=== PATIENT | male | born 1960 | race Caucasian/White ===

== ENCOUNTER 2016-09-07 11:45 | Emergency (ER) | payer OTHER ==
[~2016-09-07] VITALS: Ht 172.7 cm; Wt 68.0 kg
[~2016-09-07 11:45] MED LIST: ABILIFY 5MG5 MG PO; ALPRAZOLAM0.5 MG PO; ATIVAN0.5 MG PO; BACLOFEN10 M1 PO; BENADRYL ALLERG25 M2 PO; CEPHALEXIN500 MG PO; IBUPROFEN600 M1 PO; IBUPROFEN800 M1 PO; NYSTATIN AND TR1 OIN TOP; PERCOCET 5-3251 EACH PO; PREDNISONE20 M1 PO; TRAZODONE50 MG PO; ULTRAM50 M1 PO; VIIBRYD40 MG PO
--- NOTE | 2016-09-07 11:56 | ED GENERAL ADULT ---
History of Present Illness General Chief Complaint: ETOH/Drug Related Complaint Stated Complaint: ?OD Source: patient, family, old records, EMS Exam Limitations: poor historian Vital Signs & Intake/Output Vital Signs & Intake/Output Vital Signs Date Time Temp Pulse Resp B/P Pulse O2 O2 Flow FiO2 Ox Delivery Rate 09/07 1337 97.0 74 18 130/77 98 Room Air 09/07 1237 98 Room Air 09/07 1147 96.0 75 18 138/85 98 Room Air Allergies Coded Allergies: Sulfa (Sulfonamide Antibiotics) (ANAPHYLACTIC 11/01/15) Reconcile Medications Vilazodone (Viibryd) 40 MG TABLET 1 TAB PO DAILY MENTAL HEALTH (Reported) Triage Nurses Notes Reviewed? yes HPI: Patient is a 56-year-old male brought in by ambulance for evaluation of change in mental status and overdose. Patient reports that he took 50 mg of Ambien at approximately 8:30 or 9 AM this morning. Patient's reports that he appeared to be severely confused and hallucinating since he took the medication which prompted her to call 911. Patient reports that he has been having difficulty sleeping for a couple of years, worse over the past couple of weeks. Patient initially took 10 mg of Ambien without effect so he took an additional 40 mg. This was confirmed by patient's counting the pills remaining in the bottle of Ambien. Patient has been severely depressed due to financial stressors and his inability to sleep. Patient also hearing rats at home, unclear whether rats are present this is a hallucination. Patient has been going to the [facility] frequently and using cocaine. Patient was previously on 40 mg of Vibryd, he stopped going to his doctor so he now takes his 's medication, taking 20 mg daily for the past 2 years. Patient denies suicidal ideation. Past History Travel History Traveled to [place] past 21 day No Medical History Any Pertinent Medical History? see below for history Musculoskeletal: disk herniation Psychiatric: depression, insomnia Surgical History Surgical History: non-contributory Psychosocial History Who do you live with Family What is your primary language Amharic Tobacco Use: Current Daily Use Daily Tobacco Use Amount/Type: => 5 Cigarettes daily ETOH Use: denies use Illicit Drug Use: cocaine, occasional opiates Family History Hx Contributory? No Review of Systems Review of Systems Constitutional: Denies: chills, fever. EENTM: Reports: no symptoms. Respiratory: Denies: cough, short of breath. Cardiovascular: Denies: chest pain. GI: Denies: abdominal pain, nausea, vomiting. Genitourinary: Reports: no symptoms. Musculoskeletal: Denies: back pain, neck pain. Skin: Reports: no symptoms. Neurological/Psychological: Reports: see HPI. Hematologic/Endocrine: Denies: bruising, bleeding. Immunologic/Allergic: Denies: splenectomy. Physical Exam Physical Exam General Appearance: alert, awake Head: multiple 0.5-1 cm superficial wounds to the superior scalp. No erythema or induration Eyes: Bilateral: normal appearance, PERRL, EOMI. Ears, Nose, Throat: hearing grossly normal Neck: normal inspection, supple, full range of motion Respiratory: normal breath sounds, chest non-tender, no respiratory distress, lungs clear Cardiovascular: regular rate/rhythm Gastrointestinal: soft, non-tender Back: normal inspection, normal range of motion Extremities: normal inspection, normal capillary refill, normal range of motion, no edema Neurologic/Psych: awake, alert, depressed affect, pressured speech. No suicidal ideation. Skin: warm/dry Lymphatic: no anterior cervical kyle Core Measures ACS in differential dx? No CVA/TIA Diagnosis: No Severe Sepsis Present: No Septic Shock Present: No Progress Differential Diagnoses I considered the following diagnoses in my evaluation of the patient: overdose( unintentional vs intentional), withdrawal, suicide attempt, mood disorder, personality disorder, psychosis Plan of Care: Orders Procedure Date/time Status ED CRISIS PSYCH CONSULT 09/07 1213 Active URINE DRUG SCREEN FOR ER ONLY 09/07 1153 Complete ACETOMINOPHEN 09/07 1153 Complete SALICYLATE 09/07 1153 Complete ETHANOL 09/07 1153 Complete COMPREHENSIVE METABOLIC PANEL 09/07 1153 Complete CBC WITHOUT DIFFERENTIAL 09/07 1153 Complete EKG 09/07 1153 Active Laboratory Tests 09/07/16 1221: Urine Opiates Screen < 100.00, Methadone Screen < 40, Barbiturate Screen 63, Ur Phencyclidine Scrn < 6.00, Amphetamines Screen < 100, U Benzodiazepines Scrn < 85, Urine Cocaine Screen > 1000 H, Urine Cannabis Screen > 80.00 H 09/07/16 1221: Anion Gap 10, Estimated GFR > 60, BUN/Creatinine Ratio 17.8, Glucose 93, Calcium 10.0, Total Bilirubin 0.9, AST 28, ALT 43, Alkaline Phosphatase 66, Total Protein 7.1, Albumin 4.5, Globulin 2.6, Albumin/Globulin Ratio 1.7, CBC w Diff NO MAN DIFF REQ, RBC 4.96, MCV 88.9, MCH 29.3, RDW 14.0, MPV 7.0 L, Gran % 67.1 , Lymphocytes % 19.4 L, Monocytes % 10.0 H, Eosinophils % 3.1, Basophils % 0.4 , Absolute Granulocytes 4.4, Absolute Lymphocytes 1.3, Absolute Monocytes 0.6, Absolute Eosinophils 0.2, Absolute Basophils 0, PUBS MCHC 33.0, Salicylates < 1.0, Acetaminophen < 10.0 L, Serum Alcohol < 10.0 1330: No SI or HI. No apparent hallucinations. Patient does not want to stay for crisis evaluation. Discussed medication safety and his cocaine use. (SUNG LUNA,MELANIA) Initial ED EKG: normal axis, normal intervals, normal p-waves, normal QRS complex, normal sinus rhythm, no ST T wave changes Departure Departure Time of Disposition: 1329 Disposition: HOME OR SELF CARE Condition: Stable Clinical Impression Primary Impression: Accidental medication overdose Qualifiers: Encounter type: initial encounter Qualified Code: T50.901A - Poisoning by unspecified drugs, medicaments and biological substances, accidental (unintentional), initial encounter Secondary Impressions: Cocaine abuse, episodic Referrals: PATIENT HAS NO PRIMARY CARE DR (PCP/Family) Additional Instructions: Provided is a list of counseling resources and the information for a primary care doctor. Take any prescription medications as directed. Taking additional doses puts you at risk for respiratory arrest and your heart stopping. Return to the ER if thoughts of harming yourself, if you would like to be evaluated by the cutting machine operator in the emergency department or worsening of symptoms. Departure Forms: Customer Survey General Discharge Information Critical Care Note Critical Care Note Critical Care Time: non-applicable
[2016-09-07 12:31] LABS: ABSOLUTE BASOPHIL COUNT 0 /CUMM (0.0-0.2); ABSOLUTE EOSINOPHIL COUNT 0.2 /CUMM (0.0-0.7); ABSOLUTE GRANULOCYTE CT 4.4 /CUMM (1.4-6.5); ABSOLUTE LYMPH COUNT 1.3 /CUMM (1.2-3.4); ABSOLUTE MONOCYTE COUNT 0.6 /CUMM (0.10-0.60); BASOPHIL % 0.4 % (0.0-2.0); EOSINOPHIL % 3.1 % (0-5); GRANULOCYTE % 67.1 % (42.2-75.2); HEMATOCRIT 44.1 % (42-52); MEAN CORPUSCULAR HGB 29.3 PG (27.0-31.0); MEAN CORPUSCULAR VOLUME 88.9 FL (80.0-94.0); PLATELET COUNT 226 /CUMM (130-400); RED BLOOD CELL CT 4.96 /CUMM (4.70-6.10); WHITE BLOOD CELL COUNT 6.5 /CUMM (4.8-10.8)
[2016-09-07 13:37] VITALS: BP 130/77
[2016-09-07] MEDS ORDERED: VIIBRYD40 M1 PO (18:23)
== END 2016-09-07 13:38 ==
LOC: ERH 11:45
PROVIDERS: Physician Assistant
DX: T45.0X1A Poisoning by antiallergic and antiemetic drugs, accidental (unintentional), initial encounter (principal); F14.10 Cocaine abuse, uncomplicated; F32.9 Major depressive disorder, single episode, unspecified
CPT/HCPCS: 80307; 93005; 93010; G0463; G0480

== ENCOUNTER 2016-09-07 16:13 | Emergency (ER) | payer OTHER ==
[~2016-09-07] VITALS: Ht 165.1 cm; Wt 68.0 kg
--- NOTE | 2016-09-07 17:50 | ED PSYCHIATRIC COMPLAINT ---
History of Present Illness General Chief Complaint: Psychiatric Related Complaint Stated Complaint: BIBA FOR ?PSYCH EVAL Source: patient Exam Limitations: no limitations Allergies Coded Allergies: Sulfa (Sulfonamide Antibiotics) (ANAPHYLACTIC 11/01/15) Reconcile Medications Vilazodone (Viibryd) 40 MG TABLET 1 TAB PO DAILY MENTAL HEALTH (Reported) Triage Note: PT BIBEstevan FROM HOME S/P VERBAL ARGUMENT WITH HIS . HE WAS EVALUATED HERE THIS AM FOR OVER TAKING HIS ATIVAN AND EVENTUALLY RELEASED. HIS WAS SUPPOSED TO PICL HIM UP FROM THE ED HOWEVER SHE DID NOT FOR HE WAS ANGRY AND UPON ARRIVING TO HIS HOUSE HE BAGAN ARGUING WITH HER. HE WAS NOT PHYSICALLY AGRESSIVE TOWARDS HIS ALTHOGH HE ADMITTS TO BRAKING SEVERAL ITEMS IN THE HOUSE. Triage Nurses Notes Reviewed? yes HPI: This patient is a 56-year-old male who presented to the emergency department today brought in by ambulance for evaluation after getting into an argument with his . This patient was seen here this morning. The patient reported that this morning his thought that he took 10 Ambien and he reported that he only took 4. He reported that he was evaluated here and then released. He reported that when he went home he'll let his kids and then before he knew that he was back here in the emergency department. The patient reported, "I don't know why I'm here. I am embarrassed." He denied any chest pain, debility breathing, abdominal pain, nausea, vomiting, fevers, or chills. (JOIE GARCIA,DILLAN) Vital Signs & Intake/Output Vital Signs & Intake/Output Vital Signs Date Time Temp Pulse Resp B/P Pulse O2 O2 Flow FiO2 Ox Delivery Rate 09/08 0802 97.1 75 18 115/77 96 Room Air 09/08 0609 96.2 64 18 121/79 97 Room Air 09/07 2002 97.1 82 18 138/84 97 Room Air ED Intake and Output 09/08 0000 09/07 1200 Intake Total 0 Output Total Balance 0 Intake, Oral 0 Patient 150 lb Weight Past History Travel History Traveled to [place] past 21 day No Medical History Any Pertinent Medical History? see below for history Musculoskeletal: disk herniation Psychiatric: depression, insomnia Surgical History Surgical History: non-contributory Psychosocial History Who do you live with Family What is your primary language Niuean Tobacco Use: Current Daily Use Daily Tobacco Use Amount/Type: => 5 Cigarettes daily Family History Hx Contributory? No (DILLAN SALTER PA-C) Review of Systems Review of Systems Constitutional: Reports: no symptoms. EENTM: Reports: no symptoms. Respiratory: Reports: no symptoms. Cardiovascular: Reports: no symptoms. GI: Reports: no symptoms. Musculoskeletal: Reports: no symptoms. Skin: Reports: no symptoms. Neurological/Psychological: Reports: see HPI. All Other Systems: Reviewed and Negative (DILLAN SALTER PA-C) Physical Exam Physical Exam General Appearance: well developed/nourished, no apparent distress, alert, awake Neurological/Psychiatric: no motor/sensory deficits, awake, alert, calm, industrial automation specialist II- XII nml as tested, depressed affect, oriented x 3 Comments: Well-developed well-nourished person in no acute distress HEENT: Normal EENT exam, head normocephalic, moist mucous membranes Pupils equally round and reactive to light. Back: Normal gait Respiratory: No respiratory distress. Speaking full sentences Extremity: Normal and equal pulses Neuro: Alert oriented x3, motor sensory normal, cranial nerves II through XII grossly intact. Skin: No appreciable rash on exposed skin, skin is warm and dry. Psych: Mood and affect is depressed SAD PERSONS Done? patient not suicidal (DILLAN SALTER PA-C) Progress Differential Diagnosis: dementia, drug intoxication, drug overdose, drug withdrawal, electrolyte abnormality, encephalitis Hand-Off Endorsed To: VANESA CASTRO MD Endorsed Time: 99 Pending: consult Comments: Discussed this patient with crisis. They reported that as long as the patient had a new urine toxicology screen and is breathalyzed, they're fine with bypassing the CBC, CMP, and serum alcohol level. THIS PATIENT WILL BE RE-EVALUATED BY CRISIS IN THE MORNING. (DILLAN SALTER PA-C) Plan of Care: Orders Procedure Date/time Status Regular Diet 09/08 B Active Continuous Observation Monitor 09/08 1900 Active Continuous Observation Monitor 09/08 1500 Active Continuous Observation Monitor 09/08 1100 Active Continuous Observation Monitor 09/08 0700 Active ED CRISIS PSYCH CONSULT 09/07 1826 Active Hand-Off Endorsed To: SELAM XIONG MD Endorsed Time: 07 Pending: consult (RE-EVAL) (VANESA CASTRO MD) Comments: Cleared by psychiatry for discharge. (SELAM XIONG MD) Departure Departure Disposition: HOME OR SELF CARE Condition: Stable Referrals: PATIENT HAS NO PRIMARY CARE DR (PCP/Family) (JOIE GARCIA,DILLAN) Departure Clinical Impression Primary Impression: Depression (GLORIA ALCANTAR,VANESA Carney) Departure Time of Disposition: 829 Departure Forms: General Discharge Information PA/AUTOMOBILE INSURANCE CLAIM EXAMINER Co-Sign Statement Statement: ED Attending supervision documentation- x I saw and evaluated the patient. I have also reviewed all the pertinent lab results and diagnostic results. I agree with the findings and the plan of care as documented in the PA's/AUTOMOBILE INSURANCE CLAIM EXAMINER's documentation. [] I have reviewed the ED Record and agree with the PA's/AUTOMOBILE INSURANCE CLAIM EXAMINER's documentation. [] Additions or exceptions (if any) to the PAs/AUTOMOBILE INSURANCE CLAIM EXAMINER's note and plan are summarized below: [] (SELAM XIONG MD) Departure Forms: General Discharge Information PA/AUTOMOBILE INSURANCE CLAIM EXAMINER Co-Sign Statement Statement: ED Attending supervision documentation- x I saw and evaluated the patient. I have also reviewed all the pertinent lab results and diagnostic results. I agree with the findings and the plan of care as documented in the PA's/AUTOMOBILE INSURANCE CLAIM EXAMINER's documentation. [] I have reviewed the ED Record and agree with the PA's/AUTOMOBILE INSURANCE CLAIM EXAMINER's documentation. [] Additions or exceptions (if any) to the PAs/AUTOMOBILE INSURANCE CLAIM EXAMINER's note and plan are summarized below: [] (SELAM XIONG MD)
[2016-09-07] MEDS ORDERED: VIIBRYD40 M1 PO (18:23)
--- NOTE | 2016-09-07 19:23 | ED PSYCH CRISIS CONSULTATION ---
Crisis Consult Basic Assessment Date of Consult: 09/07/16 Responsible Person/Accompanied By: self/BIBA on [place] [employer] PEER Insurance Authorization: Insurance #1: Insurance name: ELLIOTT Corado[employer] Phone number: Policy number: [id number] Group number: Authorization number: ED Provider: Patient's ED Provider: DILLAN SALTER PA-C Primary Care Physician: Patient's PCP: PATIENT HAS NO PRIMARY CARE DR PCP's Phone Number: Current Psychiatrist: Yohan Rodrigues MD Chief Complaint: Psychiatric Related Complaint Patient's Quote: I'm having a bad day Present Illness: Pt is a 56 yo male biba ambulance to [facility] this afternoon on an [place] [employer] PEER. Police were called out to the home by a neighbor due to Pt causing a disturbance in the home yelling and breaking things. Pt had been evaluated earlier today at [facility] due to 's concerns that pt took too many ambien pills. thought he took ten pt reports four. Upon initial discharge pt reportedly had to walk home and entered the home agitated and was yelling at his sons (age 18 and 14). Pt reports no treatment hx. He reports 23 yo daughter 8 yrs ago in a motor vehicle accident and since then he has been inconsistently taking an anti-depressant medication. Pt reports he has been up late last two nights dealing with a mouse issue in the house and hasn't been able to sleep for the reason he took the ambian. Pt reports he typically doesn't take ambian. Pt denies alcohol use. He reports occasional cocaine use and states he used cocaine a couple of days ago. Pt also denies recent cannabis use and contributes positive screen due to being around a lot of people who smoke marijuana. Pt denies si/hi. Pt reports "its been a bizarre day". Pt reports loving his and kids and is sad that he has but them through this turmoil today. Pt presents as tearful and tired. He expressed possible interest in outpatient therapy and being evaluated by a psychiatrist to determine if he would benefit from a change in medication. Patient's Address: [address] [place] [address] Other Who Do You Live With? Family Family/Informants Interviewed: Collateral provided by pt Sravani. she reports pt has no hx of mental health concerns. She reports he seems more stressed recently. Family having difficult financial issues and pt not working consistently. She reports pt is not a risk to self or others but she feels he needs to get a good night sleep and reevaluated in the morning. She reports hope that he will be interested in outpatient tx. Allergies - Coded Allergies: Sulfa (Sulfonamide Antibiotics) (ANAPHYLACTIC 11/01/15) Current Medications - Scheduled Medications Vilazodone (Viibryd) 40 MG TABLET 1 TAB PO DAILY MENTAL HEALTH (Reported) Entered as Reported by ZEHRA PEREIRA on 09/07/16 1823 Laboratory Results: Laboratory Tests 09/07/16 1711: CBC w Diff Cancelled, WBC Cancelled, RBC Cancelled, Hgb Cancelled, Hct Cancelled , MCV Cancelled, MCH Cancelled, RDW Cancelled, Plt Count Cancelled, MPV Cancelled, PUBS MCHC Cancelled, Serum Alcohol Cancelled 09/07/16 1624: Urine Opiates Screen < 100.00, Methadone Screen < 40, Barbiturate Screen 61, Ur Phencyclidine Scrn < 6.00, Amphetamines Screen < 100, U Benzodiazepines Scrn < 85, Urine Cocaine Screen > 1000 H, Urine Cannabis Screen > 80.00 H (MARINA BURGESS LCSW) Past History Past Medical History Musculoskeletal: disk herniation Psychiatric: depression, insomnia Past Surgical History Surgical History: non-contributory Psychosocial History Strengths/Capabilities: cares about family Physical Limitations (Interventions): none known Psychiatric Treatment History Psych Treatment Psychiatric Treatment No Inpatient Treatment No Outpatient Treatment No Diagnosis by History: Depression Substance Use/Abuse History Drug Use/Abuse 1 Substances Used/Abused Yes Substance Used/Abused Cocaine Last Used this weekend Drug Use/Abuse 2 Substances Used/Abused Yes Substance Used/Abused Marijuana Substance Abuse Treatment Substance Abuse Treatment Past Substance Abuse [place] No Inpatient Treatment No Outpatient Treatment No Comments: minimizes amout of cocaine and cannabis use. (MARINA BURGESS LCSW) Current Mental Status Mental Status Orientation: Person, Place, Situation Affect: Depressed, Sad Speech: WNL Neuro-vegetative: Concentration Poor, Sleep Disturbance Appearance Appearance- Dress/Hygiene: hospital scrubs; tearful; sitting up on end of bed wrapped in blanket; unshaven. 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 Pt also denies depression but reports taking antidepresant Viibrand 40 mg past 8yrs following of his 23 yo daughter from motor vehicle accident. Pt does report potential interest in outpatient therapy and evaluation by psychiatrist. (MARINA BURGESS LCSW) Departure Disposition Psych Medical Clearance Date: 09/07/16 Medically Cleared at: 1930 Time Started: 1934 Time Ended: 2014 Psychiatrist Consulted: Yohan Rodrigues MD Date Disposition Established: 09/07/16 Time Disposition Established: 2019 Plan for Disposition - Modality: H/O re-eval in morning Facility: [facility] Rationale for Disposition: Pt difficulty sleeping last few nights. Urine tox screen positive for Cocaine and cannabis. Episode of aggression/agitation this afternoon. pt tearful. Denies /SI/HI. Plan to h/o night and re-assess tomorrow by crisis when less cocaine and cannabis in pt system. Referrals PATIENT HAS NO PRIMARY CARE DR (PCP/Family) (MARINA BURGESS LCSW) Disposition Psych Medical Clearance Date: 09/08/16 Medically Cleared at: 0745 Time Started: 744 Time Ended: 819 Psychiatrist Consulted: Wiley Hammond MD Date Disposition Established: 09/08/16 Time Disposition Established: 819 Plan for Disposition - Modality: Pt refusing follow-up Facility: pt refusing Rationale for Disposition: Pt denies SI/HI/SH/Psychosis and declines any tx (WADE BOONE LCSW) Addendum Addendum Crisis re-evaluated pt this morning and he presents as calm and co-operative. He continues to deny SI/HI/SH/psychosis. Pt expresses that he slept well and would like to go home. He was offered inpt psych tx, IOP, and IOP multiple times and he continues to refuse. Pt's came in and crisis met with pt and together and separately. informed that she locked-up all the medications ion the home yesterday after his prior ED for over use of his ambien. she denies having any safety concerns, but did encourage pt to go to out pt tx, but he continues to refuses stating that he plans for he and his family to move soon. Pt and his interacted calmly and appropriately. was hugging and comforting pt and asking to take him home. Case reviewed with Dr. Hammond of Psychiatry who approved discharge. (PAOLO SHETTY,WADE)
[2016-09-08 08:02] VITALS: BP 115/77
== END 2016-09-08 08:44 ==
LOC: ERH 16:13
DX: F32.9 Major depressive disorder, single episode, unspecified (principal)
CPT/HCPCS: 80307; G0463; G0480

== ENCOUNTER 2016-10-10 09:52 | Emergency (ER) | payer OTHER ==
[~2016-10-10] VITALS: Ht 170.2 cm; Wt 68.0 kg
[~2016-10-10 09:52] MED LIST changes: +VIIBRYD40 M1 PO
[2016-10-10 10:03] VITALS: BP 14/84
--- NOTE | 2016-10-10 10:31 | ED INFLUENZA/URI COMPLAINT ---
History of Present Illness General Chief Complaint: Sore Throat, Dental Pain Stated Complaint: SORE THROAT Source: patient Exam Limitations: no limitations Vital Signs & Intake/Output Vital Signs & Intake/Output Vital Signs Date Time Temp Pulse Resp B/P B/P Pulse O2 O2 Flow FiO2 Mean Ox Delivery Rate 10/10 1003 97.4 74 16 92 Allergies Coded Allergies: Sulfa (Sulfonamide Antibiotics) (ANAPHYLACTIC 11/01/15) Reconcile Medications Albuterol Sulfate (Proventil Hfa) 90 MCG HFA.AER.AD 2 PUF INH Q4 SOB Amoxicillin 875 MG TABLET 1 TAB PO BID bronchitis/sore throat Prednisone (Deltasone) 20 MG TABLET 1 TAB PO TID SORE THROAT Vilazodone (Viibryd) 40 MG TABLET 1 TAB PO DAILY MENTAL HEALTH (Reported) Triage Note: PT IS HAVING SORE THROAT FOR THE PAST 2 DAYS. PT STATES HIS EPIGLOTIS IS HANGING DOWN INTO HIS THROAT. Triage Nurses Notes Reviewed? yes Onset: Abrupt Duration: day(s): (3), constant, continues in ED Timing: recent history Severity: moderate, severe No Modifying Factors: none HPI: 56-year-old male comes into emergency room with complaints of sore throat. Symptoms may going on for the past 3 days. Patient reports that the thing that hangs in the back of his mouth is swollen and touching his tongue. Patient reports that he has been coughing for a couple months. He is a every day smoker. Some mucus production. Denies any vomiting chest pain or shortness of breath. Nothing seems to make the symptoms better or worse. Denies any other associated symptoms. (MARSHALL PHILIP) Past History Travel History Traveled to [place] past 21 day No Medical History Any Pertinent Medical History? none Musculoskeletal: disk herniation Psychiatric: depression, insomnia Surgical History Surgical History: non-contributory Psychosocial History Who do you live with Family What is your primary language Turkmen Tobacco Use: Current Daily Use Daily Tobacco Use Amount/Type: => 5 Cigarettes daily ETOH Use: denies use Illicit Drug Use: cocaine Family History Hx Contributory? No (MARSHALL PHILIP) Review of Systems Review of Systems Constitutional: Reports: see HPI. EENTM: Reports: see HPI. Respiratory: Reports: see HPI. Cardiovascular: Reports: no symptoms. GI: Reports: no symptoms. Genitourinary: Reports: no symptoms. Musculoskeletal: Reports: no symptoms. Skin: Reports: no symptoms. Neurological/Psychological: Reports: no symptoms. Hematologic/Endocrine: Reports: no symptoms. Immunologic/Allergic: Reports: no symptoms. All Other Systems: Reviewed and Negative (MARSHALL PHILIP) Physical Exam Physical Exam General Appearance: well developed/nourished, alert, awake Head: atraumatic, normal appearance Eyes: Bilateral: normal appearance, EOMI. Ears, Nose, Throat: moist mucous membrane, hearing grossly normal, posterior pharynx erythematous, uvula swollen, no exudates, Neck: normal inspection, full range of motion Respiratory: no respiratory distress, rhonchi, wheezing Cardiovascular: regular rate/rhythm Gastrointestinal: soft, non-tender Back: normal inspection Extremities: normal inspection, normal range of motion, no edema Neurologic/Psych: awake, alert, oriented x 3, normal gait, normal mood/affect Skin: intact, normal color Core Measures Severe Sepsis Present: No Septic Shock Present: No (MARSHALL PHILIP) Progress Differential Diagnosis: influenza, meningitis, neutropenia, otitis, pneumonia, pharyngitis, sinusitis, bronchitis,, uveitis, strep throat, Plan of Care: Orders Procedure Date/time Status THROAT CULTURE W/QUICK STREP 10/10 1030 Active Diagnostic Imaging: Viewed by Me: Radiology Read. Discussed w/RAD: Radiology Read. Radiology Impression: SERVICE DATE: 10/10/16 EXAM TYPE: RAD - XRY-CHEST XRAY, PA AND LATERAL EXAMINATION: XR CHEST CLINICAL INFORMATION: Wheezing. COMPARISON: Chest radiographs 09/15/2012, 12/22/2011. TECHNIQUE: PA and lateral views of the chest are obtained. FINDINGS: The lungs are clear. The vascularity is normal. There is no coarsening of the bronchiolar markings or overt hyperinflation from prior studies. There is no airspace consolidation or effusion. The costophrenic sulci are clear. The cardiac and hilar and mediastinal contours and bony structures are stable. IMPRESSION: Lungs clear. No acute intrathoracic disease. DICTATED BY: SAMANTHA HAMMOND MD DATE/TIME DICTATED :10/10/161111 WEED THINNER:TAWNYA DATE/TIME TRANSCRIBED:10/10/161111 Initial ED EKG: none (MARSHALL PHILIP) Departure Departure Disposition: HOME OR SELF CARE Condition: Stable Clinical Impression Primary Impression: Pharyngitis Referrals: FELICIANO ALCANTAR,FABIOLA López (PCP/Family) Additional Instructions: Take prednisone and amoxicillin as prescribed. Use albuterol pump at home. Follow-up with primary care doctor. Return if any other concerns worsening symptoms. Please go over all results of today's visit with your primary care doctor. Contact your primary care doctor to let them know you were here in the emergency room. There may be nonspecific findings which may not be related to your visit today here in the emergency room but may require further evaluation and chronic monitoring by your primary care doctor. If you had a laceration today the chance of foreign body always remains. You should follow-up with your primary care doctor for recheck in 3-5 days for a wound check. If you had an x-ray done there is a chance that a fracture could have been missed on initial read and you should follow-up with your primary care doctor for repeat x-rays if symptoms persist. If your blood pressure was elevated here in the emergency room please have rechecked by her primary care doctor within the next 48 hours by your primary care doctor. If you were prescribed a narcotic here in the emergency room or any type of controlled substances you're not allowed to drive while taking this medication or operate any type of heavy machinery. Narcotics can make you feel lightheaded dizziness nausea and can cause constipation. You may need to bulk picker a stool softener. Thank you for choosing [facility] emergency room. Please return to the emergency room immediately if you have any other concerns worsening of symptoms. Departure Forms: Customer Survey General Discharge Information Prescriptions: Current Visit Scripts Amoxicillin 1 TAB PO BID #20 TAB Prednisone (Deltasone) 1 TAB PO TID #12 MG Albuterol Sulfate (Proventil Hfa) 2 PUF INH Q4 #1 INHAL Comments 10/10/2016 12:04:57 PM Nontoxic-appearing. In no apparent distress. Resting comfortably on stretcher. Symptoms most consistent with viral illness. Return if any other concerns worsening symptoms. Understands and agrees with plan of care. (MARSHALL PHILIP) PA/CLINICAL NURSING MANAGER Co-Sign Statement Statement: ED Attending supervision documentation- [] I saw and evaluated the patient. I have also reviewed all the pertinent lab results and diagnostic results. I agree with the findings and the plan of care as documented in the PA's/CLINICAL NURSING MANAGER's documentation. [X] I have reviewed the ED Record and agree with the PA's/CLINICAL NURSING MANAGER's documentation. [] Additions or exceptions (if any) to the PAs/CLINICAL NURSING MANAGER's note and plan are summarized below: [] (GLORIA ALCANTAR,VANESA Carney)
--- NOTE | 2016-10-10 11:20 | RADIOLOGY REPORT ---
EXAMINATION: XR CHEST CLINICAL INFORMATION: Wheezing. COMPARISON: Chest radiographs 09/15/2012, 12/22/2011. TECHNIQUE: PA and lateral views of the chest are obtained. FINDINGS: The lungs are clear. The vascularity is normal. There is no coarsening of the bronchiolar markings or overt hyperinflation from prior studies. There is no airspace consolidation or effusion. The costophrenic sulci are clear. The cardiac and hilar and mediastinal contours and bony structures are stable. IMPRESSION: Lungs clear. No acute intrathoracic disease.
[2016-10-10] MEDS ORDERED: PROVENTIL HFA6.7 GM INH (11:33)
[2016-10-10] MEDS ORDERED: DELTASONE20 MG PO (11:33)
[2016-10-10] MEDS ORDERED: AMOXICILLIN875 M1 PO (11:33)
== END 2016-10-10 11:40 ==
LOC: ERH 09:52
DX: J02.9 Acute pharyngitis, unspecified (principal); F17.210 Nicotine dependence, cigarettes, uncomplicated
CPT/HCPCS: 1263

== ENCOUNTER 2017-07-26 08:37 | Emergency (ER) | payer OTHER ==
[~2017-07-26] VITALS: Ht 167.6 cm; Wt 65.8 kg
[~2017-07-26 08:37] MED LIST changes: +AMOXICILLIN875 M1 PO; +DELTASONE20 MG PO; +PROVENTIL HFA6.7 GM INH; +TESSALON PERLE100 M1 PO
--- NOTE | 2017-07-26 10:41 | ED GENERAL ADULT ---
History of Present Illness General Chief Complaint: General Adult Stated Complaint: COUGHING LEADS TO RIGHT UNDERARM PAIN Source: patient, family Exam Limitations: no limitations Vital Signs & Intake/Output Vital Signs & Intake/Output Vital Signs Date Time Temp Pulse Resp B/P B/P Pulse O2 O2 Flow FiO2 Mean Ox Delivery Rate 07/26 1220 98.2 76 18 137/78 97 Room Air Room Air 07/26 1049 98 07/26 0849 97.9 74 18 131/83 98 Room Air Allergies Coded Allergies: Sulfa (Sulfonamide Antibiotics) (ANAPHYLACTIC 11/01/15) Triage Note: PT COMPLAINS OF PAIN IN RIGHT AXILARY AREA FOR 2 WEEKS. STATES THAT PAIN IS WORSE WHEN HE MOVES HIS ARM, ALSO STATES THAT HE INJURED R RIBS 2 MONTHS AGO AND HE STILL HAS PAIN IN THAT AREA Triage Nurses Notes Reviewed? yes Onset: Chronic Duration: week(s): Severity: moderate Severity Numbers: 7 Associated Symptoms: cough, Subjective fever HPI: 57 yo M was in his usual state of health when he presented to the ED for a 2 week pain under his right arm. The pain is rated 7/10, produced when he coughs or breathes deeply. It is relieved by Ibuprofen and is reproducible. He states it originated from the upper lobe of the right lung and extends into his right underarm. He endorses subjective fever, and cough. As of note, he presented to the ED April 07, 2017 when he was treated for diffculty breathing and cough. Since then he has had persistent cough, less in intensity, with a clear, jelly like sputum production and has not been well since then according to his . Of note, 2 months ago he also fell on his right side and imaging showed no fractures. He endorses the use of cigarettes and has at least 30 pack year history. 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 (Opare-Colette STUDENT,Jayden) Reconcile Medications Albuterol Sulfate (Proair Hfa) 90 MCG HFA.AER.AD 2 PUF INH Q4-6 PRN PRN bronchospasm Azithromycin (Zithromax) 250 MG TABLET 1 TAB PO DAILY bronchitis Guaifenesin/Dextromethorphan (Robitussin Cough-Chest Dm Liq) 100 MG-5 MG/5 ML LIQUID 5-10 ML PO Q6P PRN cough Prednisone 20 MG TABLET 1 TAB PO BID bronchospasm Vilazodone (Viibryd) 40 MG TABLET 1 TAB PO DAILY MENTAL HEALTH (Reported) (Jac Polk MD) Past History Travel History Traveled to [place] past 21 day No Medical History Any Pertinent Medical History? see below for history Neurological: NONE EENT: NONE Cardiovascular: NONE Respiratory: NONE Gastrointestinal: NONE Hepatic: NONE Renal: NONE Musculoskeletal: disk herniation Psychiatric: depression, insomnia Endocrine: NONE Blood Disorders: NONE Cancer(s): NONE PRINTING SERVICES COORDINATOR/Reproductive: NONE Surgical History Surgical History: non-contributory Psychosocial History Who do you live with Family What is your primary language Bur[place]ian Tobacco Use: Current Daily Use (at least 30 pack year hx) Daily Tobacco Use Amount/Type: => 5 Cigarettes daily ETOH Use: denies use Illicit Drug Use: denies illicit drug use Family History Hx Contributory? Yes (Yasmeen STUDENTJayden) Review of Systems Review of Systems Constitutional: Reports: see HPI, fever. EENTM: Denies: blurred vision. Respiratory: Reports: see HPI, cough, short of breath, sputum production. Cardiovascular: Denies: chest pain. GI: Denies: abdominal pain, nausea, vomiting. Musculoskeletal: Reports: see HPI. Skin: Reports: see HPI, lumps. Neurological/Psychological: Reports: emotional problems. (Yasmeen STUDENTJayden) Review of Systems Genitourinary: Reports: no symptoms. Hematologic/Endocrine: Reports: no symptoms. Immunologic/Allergic: Reports: no symptoms. All Other Systems: Reviewed and Negative (Jac Polk MD) Physical Exam Physical Exam General Appearance: no apparent distress, alert, awake, comfortable Head: Hypopigmentation Eyes: Bilateral: PERRL, EOMI. Ears, Nose, Throat: normal pharynx Neck: supple, No lymphoadenopathy Respiratory: decreased breath sounds, accessory muscle use, Mild work of breathing, barrel chest noted, Cardiovascular: regular rate/rhythm Gastrointestinal: soft, non-tender Extremities: normal inspection Neurologic/Psych: awake, alert, oriented x 3 Core Measures ACS in differential dx? No CVA/TIA Diagnosis: No Sepsis Present: No Sepsis Focused Exam Completed? No (Jayden Ferraro) Physical Exam Peripheral Pulses: 4+ carotid (R), 4+ carotid (L) Back: normal inspection, normal range of motion, no vertebral tenderness Reflexes: 2+: bicep (R), bicep (L). Skin: intact, normal color, warm/dry Lymphatic: no anterior cervical kyle (Jac Polk MD) Progress Differential Diagnoses I considered the following diagnoses in my evaluation of the patient: [COPD exacerbation, pneumonia, costochonrondritis, malignancy, pulmonary embolism] (Jayden Ferraro) Differential Diagnoses I considered the following diagnoses in my evaluation of the patient: Plan of Care: Orders Procedure Date/time Status LOWER RESPIRATORY CULTURE 07/26 1056 Active Microbiology 07/26 105 LOWER RESP: Respiratory Culture - ORD 07/26 105 LOWER RESP: Gram Stain - ORD 57 yo M presents with 2 week right underarm pain: Cough: sputum production, nebulizer treatment, CXR. Reevaluate post results and duoNeb treatment Pain: likely MSK vs pleuresy. NSAIDs However underlying all his sx could be malignancy 2/2 to his smoking and occupational exposure in the past. He will need a repeat CT in 3mths. 11:50AM Patient received a duoNeb treatment with interval improvement. CXR without anyh acute findings. Based on patient's hx and exam, patient will be treated for COPD exacerbation using prednisone, azithromycin and albuterol and ipratropium. Patient to follow up with PCP especially for repeat CT chest to follow previous findings of nodules. (Jayden Ferraro) Diagnostic Imaging: Viewed by Me: Radiology Read. Discussed w/RAD: Radiology Read. CXR Impression: A vertically oriented linear opacity is seen at the right costophrenic angle and is indeterminate. I suspect this to represent a skinfold which could be confirmed with a repeat PA view of the chest. Otherwise, no other abnormalities are detected. Initial ED EKG: none (Jac Polk MD) Departure Departure Condition: Stable Departure Forms: Customer Survey General Discharge Information (Jayden Ferraro) Departure Time of Disposition: 1204 Disposition: HOME OR SELF CARE Clinical Impression Primary Impression: COPD with acute bronchitis Referrals: Scott Garcia MD Prescriptions: Current Visit Scripts Albuterol Sulfate (Proair Hfa) 2 PUF INH Q4-6 PRN PRN bronchospasm #1 INHAL Azithromycin (Zithromax) 1 TAB PO DAILY #4 TAB Prednisone 1 TAB PO BID #10 TAB Guaifenesin/Dextromethorphan (Robitussin Cough-Chest Dm Liq) 5-10 ML PO Q6P PRN cough #240 ML Resident Co-Sign Statement Statement: ED Attending supervision documentation- x I saw and evaluated the patient. I have also reviewed all the pertinent lab results and diagnostic results. I agree with the findings and the plan of care as documented in the Resident's documentation. [] I have reviewed the ED Record and agree with the Resident's documentation. [] Additions or exceptions (if any) to the Resident's note and plan are summarized below: [] (Jac Polk MD) Critical Care Note Critical Care Note Critical Care Time: non-applicable (Jac Polk MD)
--- NOTE | 2017-07-26 11:00 | RADIOLOGY REPORT ---
EXAMINATION: XR CHEST CLINICAL INFORMATION: Productive cough COMPARISON: None TECHNIQUE: 2 views of the chest were obtained. FINDINGS: Smooth slightly undulating vertical linear opacity along the inferior lateral right chest, not seen on prior studies and appreciated only on the frontal view. The lungs are otherwise clear. No evidence of pneumothorax or pleural effusion. Heart size is normal. No acute osseous abnormality. IMPRESSION: A vertically oriented linear opacity is seen at the right costophrenic angle and is indeterminate. I suspect this to represent a skinfold which could be confirmed with a repeat PA view of the chest. Otherwise, no other abnormalities are detected.
[2017-07-26] MEDS ORDERED: PREDNISONE20 M1 PO (12:06)
[2017-07-26] MEDS ORDERED: PROAIR HFA8.5 GM INH (12:06)
[2017-07-26] MEDS ORDERED: ZITHROMAX250 M2 PO (12:06)
[2017-07-26] MEDS ORDERED: ROBITUSSIN COU237 M1 PO (12:06)
[2017-07-26 12:20] VITALS: BP 137/78
== END 2017-07-26 12:24 ==
LOC: ERH 08:37
DX: J44.9 Chronic obstructive pulmonary disease, unspecified (principal); F17.210 Nicotine dependence, cigarettes, uncomplicated
CPT/HCPCS: 1263; 71046; 87070